=== PATIENT | male | born 1970 | race Caucasian/White ===

== ENCOUNTER 2023-12-02 09:47 | Day surgery (SDC) | payer OTHER ==
[2023-12-02] VITALS (15 sets, daily range): BP systolic 105–146; BP diastolic 55–92
[~2023-12-02] VITALS: Ht 172.7 cm; Wt 90.4 kg
[~2023-12-02 09:47] MED LIST: METF500 PO; MYCO250 PO; NS 500 ML IV SCH; TACR1; propofoL 40 ML IV ONE
--- NOTE | 2023-12-02 10:35 | NUR ---
12/02/23 1035 Daniel Fernandez CONFIRMED AND REVIEWED H&P, MEDCICATIONS, ALLERGIES, MEDICAL HISTORY, RESPIRATORY HISTORY, VITAL SIGNS, 3-LEAD EKG, CONSENTS, AND PHYSICIAN ORDERS. PATIENT CONFIRMS NPO STATUS AND AGREES WITH SCHEDULED PROCEDURE. MONITOR INTACT WITH CONTINUOUS PULSE OXIMETRY, CAPNOGRAPHY, 3-LEAD EKG, INTERMITTENT BP. SUPPLEMENTAL O2 TO BE TITRATED THROUGHOUT PROCEDURE TO MAINTAIN O2 SATURATION ABOVE 90%. PATIENT DETERMINED TO BE ASA APPROPRIATE FOR PROPOFOL SEDATION PRIOR TO START OF PROCEDURE BY DR. EUGENE.
--- NOTE | 2023-12-02 11:12 | NUR ---
PATIENT DECLINES ANYTHING TO DRINK. VSS. BREATHING RA. NO C/O VERBALIZED. DENIES PAIN. BROTHER, THERESE, TO DRIVE PATIENT HOME.
--- NOTE | 2023-12-02 11:19 | NUR ---
Discharge instructions reviewed with patient. Patient verbalizes understanding. Copy given to patient to take home.
--- NOTE | 2023-12-02 11:31 | NUR ---
UP TO DRESS WITH STEADY GAIT. NO C/O VERBALIZED. VSS.
== END 2023-12-02 11:32 | disposition home or self-care (01) ==
LOC: ORSCMMR 09:47 → ORD 10:30 → ORSCMMR 11:32
PROVIDERS: Internal Medicine Gastroenterology
PROC: 0DBL8ZX Excision of Transverse Colon, Via Natural or Artificial Opening Endoscopic, Diagnostic (ICD-10-PCS; principal; 2023-12-02 10:30)
DX: Z12.11 Encounter for screening for malignant neoplasm of colon (principal); K63.5 Polyp of colon; Z94.0 Kidney transplant status; E11.9 Type 2 diabetes mellitus without complications; Z79.84 Long term (current) use of oral hypoglycemic drugs; Z79.899 Other long term (current) drug therapy
CPT/HCPCS: 82947; 88305; J2704; J7040